=== PATIENT | female | born 1955 | race American Indian/Alaskan Native ===

== ENCOUNTER 2019-04-16 14:42 | Emergency (ER) | payer SELFPAY ==
--- NOTE | 2019-04-16 14:55 | Event Note ---
ED Screening Note ED Screening Note: Pt presents for right shoulder pain that began three days no injury, fall, or trauma states she had a rotator cuff surgery a couple years ago no numbness or weakness no allergies to meds PMHx DM non smoker occ drinker no drug use This initial assessment/diagnostic orders/clinical plan/treatment(s) is/are subject to change based on patients health status, clinical progression and re- assessment by fellow clinical providers in the ED. Further treatment and workup at subsequent clinical providers discretion. Patient/guardian urged not to elope from the ED as their condition may be serious if not clinically assessed and managed. Initial orders include: xr right shoulder
[2019-04-16] MEDS ORDERED: TORADOL IM ONE (15:57)
--- NOTE | 2019-04-16 16:00 | Emergency Department Report ---
Upper Extremity - HPI Chief Complaint: Shoulder Injury Stated Complaint: RT SHOULDER PAIN Time Seen by Provider: 04/16/19 14:54 Upper Extremity: Right Shoulder Occurred When: 3 Days Severity: moderate Symptoms: Yes Pain with Movement, No Deformity, No Limited Range of Movement, No Numbness, No Weakness, No Swelling, No Bruising/Ecchymosis, No Laceration or Abrasion Other History: 63-year-old [place] female presents to the emergency room for complaint of right shoulder pain. Patient states that it began hurting 2-3 days after lifting a box at work. Patient does admit to a history of right shoulder surgery 7-8 years ago with a rotator cuff repair. Patient states that she took Aleve last doses about 3 PM. Patient has no other complaints no other past medical history currently takes no medications on a daily basis and has no known drug allergies. ED Review of Systems ROS: Stated complaint: RT SHOULDER PAIN Other details as noted in HPI Comment: All other systems reviewed and negative Musculoskeletal: arthralgia (right shoulder) ED Past Medical Hx - Past Medical History Previous Medical History?: No - Surgical History Past Surgical History?: Yes Additional Surgical History: Right shoulder surgery - Social History Smoking Status: Never Smoker Substance Use Type: None - Medications Home Medications: Home Medications Medication Instructions Recorded Confirmed Last Taken Type Meloxicam [Mobic] 7.5 mg PO QDAY #14 tablet 04/16/19 Unknown Rx Upper Extremity Exam - Exam General: Vital signs noted. No distress. Alert and acting appropriately. Head and Torso: No HEENT Abnormality, No Neck Tenderness, No Chest/Lungs Abnormality, No Abdominal Tenderness, No Back Tenderness Arm Exam: No Arm/Humerus Tenderness, No Arm Deformity Elbow: No Elbow Tenderness, No Normal Range of Motion in Elbow, No Elbow Deformity Forearm: No Forearm Tenderness, No Forearm Deformity, No Pain with Pronation, No Pain with Supination Wrist: Yes Normal ROM in Wrist, No Wrist Tenderness, No Wrist Deformity, No Snuffbox Tenderness, No Pain with Axial Thumb Compression Hand: Yes Normal ROM in Digit(s), No Hand Tenderness, No Hand Deformity, No Digit Tenderness, No Digit(s) Deformity, No Tendon Dysfunction CMS Exam: No Broken Skin, No Normal Distal Pulses, No Normal Capillary Refill, No Normal Distal Sensation ED Course Vital Signs 04/16/19 14:54 Temperature 98.5 F Pulse Rate 107 H Respiratory 16 Rate Blood Pressure 163/79 [Left] O2 Sat by Pulse 100 Oximetry ED Medical Decision Making - Radiology Data Radiology results: report reviewed Patient: BETH ORDRIGUEZ MR#: [id number] : 1955 Acct:[id number] Age/Sex: 63 / F ADM Date: 04/16/19 Loc: ED Attending Dr: Ordering Physician: ANNA LIMA Date of Service: 04/16/19 Procedure(s): XR shoulder 2+V RT Accession Number(s): [id number] cc: ANNA LIMA Fluoro Time In Minutes: PROCEDURE: XR SHOULDER 2+V RT TECHNIQUE: AP, Y, and oblique views of the right shoulder HISTORY: right shoulder pain COMPARISONS: None . FINDINGS: There is no evidence of acute fracture or dislocation. Joint spaces are maintained and bony mineralization is normal. Soft tissues are unremarkable. Large spurs around the AC joint are noted likely degenerative. The largest spurs are located superiorly. Small spurs are present anteriorly. IMPRESSION: No acute abnormality identified in the right shoulder. Degenerative changes at the AC joint This document is electronically signed by Lexy Choi MD., April 16 2019 04:23:41 PM ET Transcribed By: [facility] Dictated By: LEXY CHOI MD Electronically Authenticated By: LEXY CHOI MD Signed Date/Time: 04/16/191624 DD/ 16 - Medical Decision Making 63-year-old female comes in for complaint of pain to right shoulder. X-rays pending of right shoulder. Toradol injection for pain management. I did discuss the patient if the x-ray comes back within normal limits that she'll still need to follow-up with orthopedic provider as she may need to have further studies such as MRI. Patient verbalized understanding. Critical care attestation.: If time is entered above; I have spent that time in minutes in the direct care of this critically ill patient, excluding procedure time. ED Disposition Clinical Impression: Shoulder injury Disposition: DC-01 TO HOME OR SELFCARE Is pt being admited?: No Does the pt Need Aspirin: No Condition: Stable Instructions: Rotator Cuff Injury (ED), Osteoarthritis (ED) Additional Instructions: Take pain medication as needed. Follow-up with orthopedic provider I have listed several below. Her convenience. Prescriptions: Meloxicam [Mobic] 7.5 mg PO QDAY #14 tablet Referrals: ANITHA HERNÁNDEZ MD [Staff Physician] - 3-5 Days [facility]] - 3-5 Days Forms: Work/School Release Form(ED)
--- NOTE | 2019-04-16 16:25 | XRay Report ---
PROCEDURE: XR SHOULDER 2+V RT TECHNIQUE: AP, Y, and oblique views of the right shoulder HISTORY: right shoulder pain COMPARISONS: None . FINDINGS: There is no evidence of acute fracture or dislocation. Joint spaces are maintained and bony mineraliz ation is normal. Soft tissues are unremarkable. Large spurs around the AC joint are noted likely degenerative. The largest spurs are located superior ly. Small spurs are present anteriorly. IMPRESSION: No acute abnormality identified in the right shoulder. Degenerative changes at the AC joint This document is electronically signed by Lexy Choi MD., April 16 2019 04:23:41 PM ET
[2019-04-16 17:24] VITALS: BP 110/67
== END 2019-04-16 17:23 | disposition home or self-care (01) ==
LOC: ED 14:42
DX: S49.91XA Unspecified injury of right shoulder and upper arm, initial encounter (principal); X58.XXXA Exposure to other specified factors, initial encounter; Y93.9 Activity, unspecified; Y92.89 Other specified places as the place of occurrence of the external cause; Y99.8 Other external cause status
CPT/HCPCS: 73030; 96372; 99283; J1885